=== PATIENT | female | born 1985 | race Caucasian/White ===

== ENCOUNTER 2017-06-07 17:09 | Inpatient (IN) | payer BC ==
[~2017-06-07] VITALS: Ht 167.6 cm; Wt 107.7 kg
[2017-06-07] MEDS ORDERED: CYMBALTA 60MG60 MG PO (17:19)
[2017-06-07] MEDS ORDERED: ZOVIRAX400 MG PO (17:19)
[2017-06-07] MEDS ORDERED: PRENATAL 191 CTB PO (17:20)
[2017-06-07] MEDS ORDERED: LIALDA 1.2 GM1.2 GM PO (17:20)
[2017-06-07] MEDS ORDERED: PROBIOTIC-SUNMARK (17:20)
[2017-06-07] MEDS ORDERED: DESYREL 100MG100 MG PO (17:21)
[2017-06-07] MEDS ORDERED: VITAMIN B-625 MG (17:22)
[2017-06-07] MEDS ORDERED: ZYRTEC 10MG10 MG PO (17:22)
[2017-06-07 17:30] VITALS: BP 130/80; PULSE 72; TEMP 98.6
[2017-06-07 17:33] VITALS: BP 130/80; PULSE 72; TEMP 98.6
[2017-06-07 18:00] VITALS: BP 133/72; PULSE 79
[2017-06-07 18:05] LABS: BASO # 0.1 (0.0-0.2); BASO % 0.4 % (0.0-2.0); EOS # 0.2 (0.0-0.7); EOS % 1.6 % (0-4.0); GRAN # 8.6 (1.4-6.5); GRAN % 66.9 % (42.2-75.2); HEMATOCRIT 35.1 % (37.0-47.0); HEMOGLOBIN 12.4 g/dl (12.5-16.0); LYMPH % 23.7 % (20.0-51.0); MEAN CELL VOLUME 91 fl (80.0-100.0); MEAN CORPUSCULAR HEMOGLOBIN 32 pg (27.0-31.0); MEAN CORPUSCULAR HGB CONC 35 g/dl (33.0-37.0); MEAN PLATELET VOLUME 9.7 fl (7.4-10.4); MONO # 0.9 (0.1-0.6); MONO % 6.9 % (1.7-9.3); PLATELET COUNT 230 K/mm3 (130-400); RED BLOOD COUNT 3.85 M/mm3 (4.10-5.30); REDCELL DISTRIBUTION WIDTH-CV 12.9 % (11.5-14.5); WHITE BLOOD COUNT 12.8 K/mm3 (4.8-10.8)
[2017-06-07 18:30] VITALS: BP 119/61; PULSE 63
[2017-06-07 19:05] VITALS: BP 122/66; PULSE 60; TEMP 98.3
== END 2017-06-07 19:12 | disposition short-term general hospital (02) | DRG 782 ==
LOC: LDRO 17:09 → LDR 17:44
PROVIDERS: Student in an Organized Health Care Education/Training Program
DX: O42.013 Preterm premature rupture of membranes, onset of labor within 24 hours of rupture, third trimester (principal); Z3A.33 33 weeks gestation of pregnancy
CPT/HCPCS: J0290; J0702; J1364; J7120